=== PATIENT | female | born 1955 | race Caucasian/White ===

== ENCOUNTER 2017-12-11 10:29 | Emergency (ER) | payer OTHER ==
[~2017-12-11] VITALS: Ht 165.1 cm; Wt 176.9 kg
[~2017-12-11 10:29] MED LIST: ALLO100; ALLO100 PO; ASPI81EC PO; ATOR10; ATOR20 PO; Advil200 M1; BACITO; BUPR150T2; CHOL10002; CHOL10002 PO; CIPR500 PO; CLOM50A PO; CONEST.625; CONEST.625 PO; CRANBERRY PO; CRUTCH3 USE; CYCL10; FLUO20; FLUO20 PO; FOLI1; FOLI1 PO; FURO20 PO; FURO40; Flovent Disku250 MCG; HYDACE5 PO; HYDCHL25 PO; HYDPAM50 PO; IBUP400; LISI10; LISI20 PO; LISI5 PO; Loxapine10 MG; META800 PO; MOME220I IH; MULVITMINE; NAPR550 PO; OXYACE5T; OXYACE5T PO; OXYC1TAB11 PO; PHENA200 PO; PIOG15; PIOG45 PO; POTA10T PO; POTCHL10ER PO; PREMARIN; PROACE100 PO; PROM25; PROM25S PR; QUET25 PO; RANI150; RISP1; RISP3; RISP3 PO; RXOXYACE PO; RXPHEN200 PO; RXSULTRIDS PO; SULTRIDS PO; SUMA25; Silvadene20 GM; VITAMIN B PO; VITNEPH PO; Zantac150 MG PO
[2017-12-11 11:12] LABS: BASOPHILS ABSOLUTE AUTO 0.05 K/mm3 (0.00-0.23); BASOPHILS PERCENT AUTO 1 % (0-2); EOSINOPHILS PERCENT AUTO 1 % (0-6); Hematocrit 42.3 % (33.0-51.0); Hemoglobin 12.9 g/dL (11.5-16.0); IMMATURE GRAN ABSOLUTE AUTO 0.04 K/mm3 (0.00-0.10); IMMATURE GRAN PERCENT AUTO 0 % (0-1); LYMPHOCYTES ABSOLUTE AUTO 2.44 K/mm3 (0.84-5.20); LYMPHOCYTES PERCENT AUTO 26 % (21-46); MONOCYTES ABSOLUTE AUTO 0.88 K/mm3 (0.16-1.47); MONOCYTES PERCENT AUTO 9 % (4-13); Mean Corpuscular HGB 29.1 pg (26.0-34.0); Mean Corpuscular HGB Conc 30.5 g/dL (31.5-36.5); Mean Corpuscular Volume 95 fL (80-100); Mean Platelet Volume 11.1 fL (9.1-12.4); NEUTROPHILS ABSOLUTE AUTO 5.98 K/mm3 (1.96-9.15); NEUTROPHILS PERCENT AUTO 63 % (41-73); Platelet Count 191 K/mm3 (150-400); RDW Coefficient Variation 14.5 % (11.7-14.2); RDW Standard Deviation 50.1 fL (35.1-46.3); Red Blood Cell Count 4.44 M/mm3 (3.80-5.20); White Blood Cell Count 9.49 K/mm3 (4.00-11.30)
[2017-12-11 11:29] LABS: Alanine Aminotransfer (ALT/SGP 19 U/L (12-78); Albumin, Blood 3.3 g/dL (3.4-5.0); Albumin/Globulin Ratio 0.8 (0.8-1.8); Alk Phos 91 U/L (50-136); Anion Gap 9 mmol/L (6-16); Aspartate Aminotrans (AST/SGOT 26 U/L (12-37); Bilirubin, Total 2.6 mg/dL (0.1-1.0); Blood Urea Nitrogen 10 mg/dL (8-24); Bun/Creatinine Ratio 11.3 (12.0-20.0); CO2, Blood 28 mmol/L (21-32); Calcium, Blood 9.5 mg/dL (8.5-10.1); Chloride, Blood 103 mmol/L (98-108); Creatinine, Blood 0.89 mg/dL (0.40-1.00); Globulin, Blood 4.1 g/dL (2.2-4.0); Glomerular Filtration Rate >60 (60-); Glucose, Blood 112 mg/dL (70-99); Potassium, Blood 3.3 mmol/L (3.5-5.5); Sodium, Blood 140 mmol/L (136-145); Total Protein, Blood 7.4 g/dL (6.4-8.2)
[2017-12-11 12:11] LABS: Source, Urine Clean Catch
[2017-12-11 12:18] LABS: Bilirubin, Urine Neg (Neg); Blood, Urine Neg (Neg); Glucose Qualitative, Urine Neg (Neg); Ketones, Urine Neg (Neg); Leukocyte Esterase, Urine 1+ (Neg); Nitrite, Urine Pos (Neg); Protein, Urine Neg (Neg); Specific Gravity, Urine 1.015 (1.003-1.022); Urobilinogen, Urine NORM (Normal)
[2017-12-11 12:40] LABS: Appearance, Urine Hazy (Clear); Color, Urine Yellow (P-Yellow)
[2017-12-11 12:42] LABS: Bacteria Many /hpf; Red Blood Cells, Urine Not Seen /hpf (0-2); Squamous Epithelial Cells Mod /hpf (Few)
[2017-12-11] MEDS ORDERED: Cipro500 MG PO (13:55)
[2017-12-11] MEDS ORDERED: Norco 5-325 Ta1 EACH PO (13:57)
== END 2017-12-11 14:20 | disposition home or self-care (01) ==
LOC: ER 10:29
PROVIDERS: Emergency Medicine
DX: N39.0 Urinary tract infection, site not specified (principal); E11.9 Type 2 diabetes mellitus without complications; I10 Essential (primary) hypertension; F32.9 Major depressive disorder, single episode, unspecified; Z88.8 Allergy status to other drugs, medicaments and biological substances; Z88.0 Allergy status to penicillin; Z88.6 Allergy status to analgesic agent; Z88.2 Allergy status to sulfonamides; Z79.899 Other long term (current) drug therapy
CPT/HCPCS: 36415; 74176; 80053; 81001; 83690; 85025; 87077; 87086; 87186; 96374; 96375; 99284-25; J1885; J2405; J3010

== ENCOUNTER → 2018-10-22 | Outpatient (CLI) | payer OTHER ==
[~2018-10-22] MED LIST changes: +Cipro500 MG PO; +Norco 5-325 Ta1 EACH PO
[2018-10-22 17:49] LABS: BASOPHILS ABSOLUTE AUTO 0.02 K/mm3 (0.00-0.23); BASOPHILS PERCENT AUTO 0 % (0-2); EOSINOPHILS ABSOLUTE AUTO 0.05 K/mm3 (0.00-0.68); EOSINOPHILS PERCENT AUTO 1 % (0-6); Hematocrit 39.6 % (33.0-51.0); Hemoglobin 12.4 g/dL (11.5-16.0); IMMATURE GRAN ABSOLUTE AUTO 0.02 K/mm3 (0.00-0.10); IMMATURE GRAN PERCENT AUTO 0 % (0-1); LYMPHOCYTES ABSOLUTE AUTO 1.47 K/mm3 (0.84-5.20); LYMPHOCYTES PERCENT AUTO 18 % (21-46); MONOCYTES ABSOLUTE AUTO 0.81 K/mm3 (0.16-1.47); MONOCYTES PERCENT AUTO 10 % (4-13); Mean Corpuscular HGB 28.9 pg (26.0-34.0); Mean Corpuscular HGB Conc 31.3 g/dL (31.5-36.5); Mean Corpuscular Volume 92 fL (80-100); Mean Platelet Volume 11.7 fL (9.1-12.4); NEUTROPHILS ABSOLUTE AUTO 6.05 K/mm3 (1.96-9.15); NEUTROPHILS PERCENT AUTO 72 % (41-73); Platelet Count 186 K/mm3 (150-400); RDW Standard Deviation 54.6 fL (35.1-46.3); Red Blood Cell Count 4.29 M/mm3 (3.80-5.20); White Blood Cell Count 8.42 K/mm3 (4.00-11.30)
[2018-10-22 20:20] LABS: Alanine Aminotransfer (ALT/SGP 15 U/L (12-78); Albumin, Blood 3.3 g/dL (3.4-5.0); Albumin/Globulin Ratio 0.9 (0.8-1.8); Alk Phos 92 U/L (50-136); Anion Gap 4 mmol/L (6-16); Aspartate Aminotrans (AST/SGOT 20 U/L (12-37); Bilirubin, Total 1.8 mg/dL (0.1-1.0); Blood Urea Nitrogen 17 mg/dL (8-24); Bun/Creatinine Ratio 17.4 (12.0-20.0); CO2, Blood 27 mmol/L (21-32); Chloride, Blood 107 mmol/L (98-108); Cholesterol 131 mg/dL (50-200); Creatinine, Blood 0.98 mg/dL (0.40-1.00); Globulin, Blood 3.8 g/dL (2.2-4.0); Glomerular Filtration Rate >60 (60-); Glucose, Blood 88 mg/dL (70-99); HDL Cholesterol 64 mg/dL (>39); LDL/HDL RATIO 0.8; Low Density Lipoprotein Chol 49 mg/dL (0-110); Potassium, Blood 4.2 mmol/L (3.5-5.5); Sodium, Blood 138 mmol/L (136-145); Total Protein, Blood 7.1 g/dL (6.4-8.2); Triglycerides 92 mg/dL (30-160); Very Low Density Lipoprot Chol 18 mg/dL (6-32)
== END ==
LOC: LAB 14:00 → LAB SHORT 14:00
DX: E11.9 Type 2 diabetes mellitus without complications (principal); I10 Essential (primary) hypertension
CPT/HCPCS: 80053; 80061; 83036; 85025

== ENCOUNTER 2019-09-01 08:11 | Emergency (ER) | payer OTHER ==
[~2019-09-01] VITALS: Ht 165.1 cm; Wt 167.8 kg
[2019-09-01] MEDS ORDERED: BUPROPION XL150 M1 PO (08:40)
[2019-09-01] MEDS ORDERED: ACTOS30 MG PO (08:40)
== END 2019-09-01 12:46 | disposition home or self-care (01) ==
LOC: ER 08:11
DX: S70.01XA Contusion of right hip, initial encounter (principal); M25.562 Pain in left knee; M25.512 Pain in left shoulder; F32.9 Major depressive disorder, single episode, unspecified; E11.9 Type 2 diabetes mellitus without complications; I10 Essential (primary) hypertension; Z88.8 Allergy status to other drugs, medicaments and biological substances; Z88.0 Allergy status to penicillin; Z88.6 Allergy status to analgesic agent; Z88.2 Allergy status to sulfonamides; Z79.899 Other long term (current) drug therapy; W19.XXXA Unspecified fall, initial encounter
CPT/HCPCS: 73030; 73502; 73560-LT; 96374; 99283-25; A9270-GY; J3010

== ENCOUNTER 2019-09-01 17:19 | Inpatient (IN) | payer OTHER ==
[~2019-09-01] VITALS: Ht 165.1 cm; Wt 171.0 kg
[~2019-09-01 17:19] MED LIST changes: +ACTOS30 MG PO; +BUPROPION XL150 M1 PO; -CYCL10; +CYCL10 PO; -SUMA25; +SUMA25 PO
[2019-09-01 18:24] LABS: BASOPHILS ABSOLUTE AUTO 0.02 K/mm3 (0.00-0.23); BASOPHILS PERCENT AUTO 0 % (0-2); EOSINOPHILS PERCENT AUTO 0 % (0-6); Hematocrit 42.6 % (33.0-51.0); Hemoglobin 13.6 g/dL (11.5-16.0); IMMATURE GRAN ABSOLUTE AUTO 0.11 K/mm3 (0.00-0.10); IMMATURE GRAN PERCENT AUTO 1 % (0-1); LYMPHOCYTES ABSOLUTE AUTO 0.82 K/mm3 (0.84-5.20); LYMPHOCYTES PERCENT AUTO 4 % (21-46); MONOCYTES ABSOLUTE AUTO 1.61 K/mm3 (0.16-1.47); MONOCYTES PERCENT AUTO 9 % (4-13); Mean Corpuscular HGB 27.5 pg (26.0-34.0); Mean Corpuscular HGB Conc 31.9 g/dL (31.5-36.5); Mean Corpuscular Volume 86 fL (80-100); Mean Platelet Volume 10.7 fL (9.1-12.4); NEUTROPHILS ABSOLUTE AUTO 15.91 K/mm3 (1.96-9.15); NEUTROPHILS PERCENT AUTO 86 % (41-73); Platelet Count 240 K/mm3 (150-400); RDW Coefficient Variation 14.2 % (11.7-14.2); RDW Standard Deviation 44.6 fL (35.1-46.3); Red Blood Cell Count 4.94 M/mm3 (3.80-5.20); White Blood Cell Count 18.47 K/mm3 (4.00-11.30)
[2019-09-01 18:56] LABS: Alanine Aminotransfer (ALT/SGP 30 U/L (12-78); Albumin, Blood 3.4 g/dL (3.4-5.0); Albumin/Globulin Ratio 0.8 (0.8-1.8); Alk Phos 94 U/L (50-136); Anion Gap 8 mmol/L (6-16); Aspartate Aminotrans (AST/SGOT 110 U/L (12-37); Bilirubin, Total 2.3 mg/dL (0.1-1.0); Blood Urea Nitrogen 31 mg/dL (8-24); Bun/Creatinine Ratio 35.1 (12.0-20.0); CO2, Blood 24 mmol/L (21-32); Calcium, Blood 8.6 mg/dL (8.5-10.1); Chloride, Blood 106 mmol/L (98-108); Creatinine, Blood 0.88 mg/dL (0.40-1.00); Ethanol (Alcohol), Blood, Med <3 mg/dL; Glomerular Filtration Rate >60 (60-); Glucose, Blood 116 mg/dL (70-99); Potassium, Blood 3.9 mmol/L (3.5-5.5); Sodium, Blood 138 mmol/L (136-145); Total Protein, Blood 7.4 g/dL (6.4-8.2)
[2019-09-01 23:14] LABS: Source, Urine Voided
[2019-09-01 23:20] LABS: Bilirubin, Urine Neg (Neg); Blood, Urine 1+ (Neg); Glucose Qualitative, Urine Neg (Neg); Ketones, Urine 1+ (Neg); Leukocyte Esterase, Urine 1+ (Neg); Nitrite, Urine Pos (Neg); Protein, Urine 1+ (Neg); Specific Gravity, Urine 1.025 (1.003-1.022); Urobilinogen, Urine NORM (Normal)
[2019-09-01 23:28] LABS: Color, Urine Yellow (P-Yellow)
[2019-09-01 23:29] LABS: Appearance, Urine Hazy (Clear)
[2019-09-01 23:30] LABS: Bacteria Mod /hpf; Red Blood Cells, Urine 0-2 /hpf (0-2); Squamous Epithelial Cells Mod /hpf (Few); White Blood Cells, Urine 0-2 /hpf (0-5)
--- NOTE | 2019-09-02 01:37 | NUR ---
PATIENT IS A NEW ADMIT FROM THE ED. FOUR PERSON TRANSFER; MORBID OBESE, FROM [facility] TO BED. AXOX 4 AND BEDFAST. NS INFUSING AT 100 mL/HR ON ADMIT. DECONDITIONED AND ON ROOM AIR. PATIENT REPORTS BACK, RIGHT SHOULDER, AND RIGHT BUTTOCK PAIN. PATIENT ORIENTED TO ROOM AND CALL LIGHT SYSTEM. DENIES SOB AND N/V. CALL LIGHT IN REACH.
--- NOTE | 2019-09-02 01:43 | NUR ---
OXYCODONE 5 MG GIVEN FOR SHOULDER/BACK AND BUTTOCK PAIN. STATION CAPTAIN REPORTS SB 56. MEPILEX APPLIED TO SKIN TEARS. PATIENT TOOK HER MEDICATION WHOLE WITH WATER. REPORTS SHE WANTS TO GET SOME SLEEP. CALL LIGHT IN REACH.
--- NOTE | 2019-09-02 04:04 | NUR ---
SHIFT SUMMARY PATIENT HAD NO ACUTE CHANGES OBSERVED. AXO X3 AND BEDREST PER ORDER. SUPER OBESITY. PIV REMAINS INTACT. NS INFUSED FROM ED COMPLETE. FOREIGN STUDENT ADVISER REPORTS SB 56. VSS/AFEBRILE. REPORTED RIGHT SHOULDER/BUTTOCK, AND BACK PAIN. OXYCODONE 5 MG GIVEN PER EMAR. MEPILEX APPLIED TO SKIN TEARS. ABRASIONS T/O FROM REPORTED FALL INTO ROCKS OFF HER PORCH. WEEPING BLE EDEMA +3. FOUR PERSON ASSIST TO TURN AND USE BARIATRIC BEDPAN. CALL LIGHT IN REACH. BED IN LOWEST POSITION. WILL CONTINUE TO MONITOR UNTIL DAY SHIFT NURSE ASSUMES CARE.
[2019-09-02 04:57] LABS: Hematocrit 36.9 % (33.0-51.0); Hemoglobin 11.6 g/dL (11.5-16.0); Mean Corpuscular HGB 27.5 pg (26.0-34.0); Mean Corpuscular HGB Conc 31.4 g/dL (31.5-36.5); Mean Corpuscular Volume 87 fL (80-100); Mean Platelet Volume 10.8 fL (9.1-12.4); Platelet Count 195 K/mm3 (150-400); RDW Coefficient Variation 14.3 % (11.7-14.2); RDW Standard Deviation 45.4 fL (35.1-46.3); Red Blood Cell Count 4.22 M/mm3 (3.80-5.20); White Blood Cell Count 13.53 K/mm3 (4.00-11.30)
--- NOTE | 2019-09-02 07:16 | NUR ---
ASSUMED PATIENT CARE. PATIENT SLEEPING COMFORTABLY IN BED, NO SIGNS OF ACUTE DISTRESS. WCTM.
[2019-09-02 13:36] LABS: Free Thyroxine 1.39 ng/dL (0.70-1.60); Triiodothyronine, Free 1.71 pg/mL (2.18-3.98)
--- NOTE | 2019-09-02 15:30 | NUR ---
PATIENT HAD HYPOTENSIVE EPISODE WITH BP OF 88/46. PATIENT COMPLAINED OF SEVERE PAIN, PAIN MEDICATION GIVEN AND HEAD OF BED LOWERED. BP RETAKEN AND WAS 97/43. DR. HERNANDEZ NOTIFIED, ORDER GIVEN FOR 500 ML NS BOLUS.
[2019-09-02 16:34] LABS: BASOPHILS ABSOLUTE AUTO 0.01 K/mm3 (0.00-0.23); BASOPHILS PERCENT AUTO 0 % (0-2); EOSINOPHILS ABSOLUTE AUTO 0.01 K/mm3 (0.00-0.68); EOSINOPHILS PERCENT AUTO 0 % (0-6); Hematocrit 34.5 % (33.0-51.0); Hemoglobin 11.1 g/dL (11.5-16.0); IMMATURE GRAN ABSOLUTE AUTO 0.07 K/mm3 (0.00-0.10); IMMATURE GRAN PERCENT AUTO 1 % (0-1); LYMPHOCYTES ABSOLUTE AUTO 1.21 K/mm3 (0.84-5.20); LYMPHOCYTES PERCENT AUTO 10 % (21-46); MONOCYTES ABSOLUTE AUTO 1.12 K/mm3 (0.16-1.47); MONOCYTES PERCENT AUTO 10 % (4-13); Mean Corpuscular HGB 28.2 pg (26.0-34.0); Mean Corpuscular HGB Conc 32.2 g/dL (31.5-36.5); Mean Corpuscular Volume 88 fL (80-100); Mean Platelet Volume 10.9 fL (9.1-12.4); NEUTROPHILS ABSOLUTE AUTO 9.28 K/mm3 (1.96-9.15); NEUTROPHILS PERCENT AUTO 79 % (41-73); Platelet Count 172 K/mm3 (150-400); RDW Coefficient Variation 14.5 % (11.7-14.2); RDW Standard Deviation 46.4 fL (35.1-46.3); Red Blood Cell Count 3.94 M/mm3 (3.80-5.20)
--- NOTE | 2019-09-02 17:33 | NUR ---
PATIENT WAS ABLE TO WORK WITH PT/OT AND STAND AT SIDE OF BED TODAY. LABORATORY ANALYST CONSULTED ON THIS PATIENT, ASSISTING IN DISCHARGE PLANNING. PATIENT HAD HYPOTENSIVE EPISODE THIS SHIFT, 88/46. WITH REPOSITIONING AND PAIN MANAGEMENT, BP WAS BROUGHT UP TO 97/43. DR. HERNANDEZ NOTIFIED, 500 ML NS BOLUS ORDERED AND GIVEN. BP UP TO 93/54. DR. HERNANDEZ NOTIFIED OF CONTINUED LOW BP AND PATIENT'S COMPLAINT OF HEADACHE, DR. HERNANDEZ ASSESSED AND ORDERS GIVEN FOR MAINTENANCE FLUIDS. PLAN IS FOR PATIENT TO DISCHARGE TO SNF TOMORROW.
--- NOTE | 2019-09-02 19:06 | NUR ---
RELINQUISHED PATIENT CARE.
--- NOTE | 2019-09-02 19:44 | NUR ---
AFIB CONVERSION PER TELE DOUGH MOLDER HAND, PT CONVERTED FROM NSR TO AFIB AT 1922. RATE IS CURRENTLY IN THE 120S. HOSPITALIST DR SHAW NOTIFIED. AWAITING FURTHER ORDERS.
[2019-09-02 20:58] LABS: BASOPHILS ABSOLUTE AUTO 0.02 K/mm3 (0.00-0.23); BASOPHILS PERCENT AUTO 0 % (0-2); EOSINOPHILS ABSOLUTE AUTO 0.01 K/mm3 (0.00-0.68); EOSINOPHILS PERCENT AUTO 0 % (0-6); Hematocrit 37.2 % (33.0-51.0); IMMATURE GRAN ABSOLUTE AUTO 0.05 K/mm3 (0.00-0.10); IMMATURE GRAN PERCENT AUTO 0 % (0-1); LYMPHOCYTES PERCENT AUTO 7 % (21-46); MONOCYTES ABSOLUTE AUTO 0.41 K/mm3 (0.16-1.47); MONOCYTES PERCENT AUTO 3 % (4-13); Mean Corpuscular HGB Conc 32.3 g/dL (31.5-36.5); Mean Corpuscular Volume 87 fL (80-100); Mean Platelet Volume 10.9 fL (9.1-12.4); NEUTROPHILS PERCENT AUTO 90 % (41-73); NRBC ABSOLUTE 0.02 K/mm3 (0.00-0.02); NRBC Auto 0.2 /100 WBC (0.0-0.2); Platelet Count 152 K/mm3 (150-400); RDW Coefficient Variation 14.6 % (11.7-14.2); RDW Standard Deviation 45.8 fL (35.1-46.3); Red Blood Cell Count 4.29 M/mm3 (3.80-5.20); White Blood Cell Count 12.29 K/mm3 (4.00-11.30)
[2019-09-02 22:47] LABS: International Normalized Ratio 1.03
[2019-09-03 04:54] LABS: BASOPHILS ABSOLUTE AUTO 0.02 K/mm3 (0.00-0.23); BASOPHILS PERCENT AUTO 0 % (0-2); EOSINOPHILS PERCENT AUTO 0 % (0-6); Hematocrit 31.8 % (33.0-51.0); Hemoglobin 10.2 g/dL (11.5-16.0); IMMATURE GRAN ABSOLUTE AUTO 0.12 K/mm3 (0.00-0.10); IMMATURE GRAN PERCENT AUTO 1 % (0-1); LYMPHOCYTES ABSOLUTE AUTO 1.01 K/mm3 (0.84-5.20); LYMPHOCYTES PERCENT AUTO 5 % (21-46); MONOCYTES ABSOLUTE AUTO 0.64 K/mm3 (0.16-1.47); MONOCYTES PERCENT AUTO 3 % (4-13); Mean Corpuscular HGB 28.2 pg (26.0-34.0); Mean Corpuscular HGB Conc 32.1 g/dL (31.5-36.5); Mean Corpuscular Volume 88 fL (80-100); Mean Platelet Volume 10.6 fL (9.1-12.4); NEUTROPHILS ABSOLUTE AUTO 17.81 K/mm3 (1.96-9.15); NEUTROPHILS PERCENT AUTO 91 % (41-73); Platelet Count 153 K/mm3 (150-400); RDW Coefficient Variation 14.6 % (11.7-14.2); RDW Standard Deviation 47.1 fL (35.1-46.3); Red Blood Cell Count 3.62 M/mm3 (3.80-5.20)
--- NOTE | 2019-09-03 06:37 | NUR ---
SHIFT SUMMARY PT IS A 64 Y/O FEMALE, ADMITTED AFTER A FALL AT HOME. PT IS CURRENTLY ON BEDREST. SHE WAS MEDICATED ONCE FOR PAIN WITH PRN OXYCODONE. NO COMPLAINTS OF NAUSEA OR SOB. THE PT IS ON A CONTINUOUS TELE MONITOR. PER THE BULLET CHARGING MACHINE OPERATOR, PT CONVERTED FROM NSR TO AFIB IN THE 120S AT APPROXIMATELY 1920. AFTER INFORMING THE HOSPITALIST, DR SHAW, PT WAS GIVEN ONE DOSE OF IV DILTIAZEM AND TROPONINS CHECKED. PER THE BULLET CHARGING MACHINE OPERATOR, THE HEART RATE CAME DOWN SLIGHTLY TO THE 110S, AND CONVERTED BETWEEN NSR AND AFIB MULTIPLE TIMES. THE TROPONIN WAS CRITICALLY HIGH AT 1.75. AFTER DR SHAW WAS NOTIFIED, A HEPARIN DRIP WAS STARTED AT 13 U/KG/HR OR 26.5 ML/HR. ASSISTANT WOMEN'S TENNIS COACH CONSULT CALLED IN TO ANSWERING SERVICE. HEART RATE CONVERTED BACK TO NSR AT APPROXIMATELY 2329, RATE IN THE 60-70S. BP WAS SLIGHTLY LOW THIS AM AT 99/48. ALL OTHER VITALS STABLE. THIS AM, PT DID REPORT THAT SHE HAD BEEN HAVING CHEST PAIN "SINCE I CAME IN" THAT ALSO RADIATED UP THE LEFT JAW THAT WAS WORSE WITH DEEP INHALATION. NO OTHER ACUTE CHANGES IN PT CONDITION NOTED. WILL CONTINUE TO MONITOR AND TREAT PER EMAR UNTIL HAND OFF TO DAY SHIFT RN.
[2019-09-03 08:51] LABS: CHOL/HDL RATIO 1.8; Cholesterol 94 mg/dL (50-200); HDL Cholesterol 52 mg/dL (>39); LDL/HDL RATIO 0.5; Low Density Lipoprotein Chol 24 mg/dL (0-110); Triglycerides 90 mg/dL (30-160); Very Low Density Lipoprot Chol 18 mg/dL (6-32)
--- NOTE | 2019-09-03 16:48 | NUR ---
PATIENTS HR DROPPED INTO THE 40'S WHILE SLEEPING. WHEN WOKEN HR RETURNED TO THE 60'S. PATIENT ASYMPTOMATIC WITH BRADYCARDIA. DR HERNANDEZ NOTIFIED AND NO ORDERS RECEIVED.
--- NOTE | 2019-09-03 17:44 | NUR ---
PATIENT A/OX4, UP TODAY TO A CHAIR WITH FWW AND [address] SCAN TODAY TO R/O PE. VSS, ON RA. SR/SB ON TELE, PULSE DID DROP INTO THE 40'S THIS EVENING AND DR. HERNANDEZ WAS NOTIFIED. MULTIPLE SKIN ISSUES AND DIFFUSE RASH TO ABDOMEN AND BLE. CONTINUES TO REPORT CHEST PAIN WITH DEEP BREATHS. ALSO C/O OF CHRONIC KNEE AND BACK PAIN. MEDICATED WITH TYLENOL AND OXYCODONE. MOM GIVEN X1 THIS SHIFT DUE TO CONSTIPATION. PATIENT CONT/INCONTENT, ABLE TO GET UP TO BSC. ACHS BLOOD SUGARS, NO COVERAGE NEEDED THIS SHIFT. CALM AND COOPERATIVE WITH CARE, CALLS APPROPRIATELY FOR ASSISTANCE.
--- NOTE | 2019-09-03 18:00 | NUR ---
PATIENT CONVERTED BACK INTO A-FIB WITH HR 100-115. B/P STABLE. MESSAGE LEFT WITH DR. HERNANDEZ TO UPDATE ON RHYTHM CHANGE.
[2019-09-04 04:47] LABS: BASOPHILS ABSOLUTE AUTO 0.02 K/mm3 (0.00-0.23); BASOPHILS PERCENT AUTO 0 % (0-2); EOSINOPHILS ABSOLUTE AUTO 0.03 K/mm3 (0.00-0.68); EOSINOPHILS PERCENT AUTO 0 % (0-6); Hematocrit 30.4 % (33.0-51.0); Hemoglobin 9.6 g/dL (11.5-16.0); IMMATURE GRAN PERCENT AUTO 1 % (0-1); LYMPHOCYTES ABSOLUTE AUTO 1.06 K/mm3 (0.84-5.20); LYMPHOCYTES PERCENT AUTO 7 % (21-46); MONOCYTES ABSOLUTE AUTO 0.88 K/mm3 (0.16-1.47); MONOCYTES PERCENT AUTO 6 % (4-13); Mean Corpuscular HGB 28.2 pg (26.0-34.0); Mean Corpuscular HGB Conc 31.6 g/dL (31.5-36.5); Mean Corpuscular Volume 89 fL (80-100); Mean Platelet Volume 10.5 fL (9.1-12.4); NEUTROPHILS ABSOLUTE AUTO 12.23 K/mm3 (1.96-9.15); NEUTROPHILS PERCENT AUTO 86 % (41-73); Platelet Count 147 K/mm3 (150-400); RDW Standard Deviation 47.8 fL (35.1-46.3); Red Blood Cell Count 3.41 M/mm3 (3.80-5.20); White Blood Cell Count 14.32 K/mm3 (4.00-11.30)
[2019-09-04 05:04] LABS: Anion Gap 8 mmol/L (6-16); Blood Urea Nitrogen 15 mg/dL (8-24); Bun/Creatinine Ratio 21.5 (12.0-20.0); CO2, Blood 25 mmol/L (21-32); Calcium, Blood 7.8 mg/dL (8.5-10.1); Chloride, Blood 110 mmol/L (98-108); Glomerular Filtration Rate >60 (60-); Glucose, Blood 103 mg/dL (70-99); Potassium, Blood 3.6 mmol/L (3.5-5.5); Sodium, Blood 143 mmol/L (136-145)
--- NOTE | 2019-09-04 06:27 | NUR ---
SHIFT SUMMARY PT IS A 64 Y/O FEMALE, ADMITTED AFTER A FALL AT HOME. SHE IS A&0 X 4, MORBIDLY OBESE, AND A 2 PERSON LIFT ASSIST TO GET UP TO THE BEDSIDE COMMODE. NO COMPLAINTS OF ACUTE PAIN, NAUSEA OR SOB. TELE SHOWED CONVERSION FROM AFIB IN TO NSR @ 1919, FROM NSR TO AFIB IN THE 110S @ 2155, AND BACK TO NSR IN THE 70S AT 0101. ALL OTHER VITALS STABLE. NO ACUTE CHANGES IN PT CONDITION NOTED. WILL CONTINUE TO MONITOR AND TREAT PER EMAR UNTIL HAND OFF TO DAY SHIFT RN.
--- NOTE | 2019-09-04 11:57 | NUR ---
PATIENT STARTED OUT MY SHIFT WITH HEART CLARY/RHYTHM AT NORMAL SINUS RHYTHM. BY 0815 HER HR/RHYTHM CONVERTED TO AFIB. I WASN'T ABLT TO GET TO HER TO ADMINISTER HER MEDICATIONS UNTIL ABOUT 0830, I INFORMED THE NANOSYSTEMS ENGINEER MONITOR ABOUT THIS. I WAS GIVEN A CALL BACK AT 0855 TO NOTIFY ME THAT THE PATIENT CONVERTED BACK TO NSR.
--- NOTE | 2019-09-04 16:09 | NUR ---
THE PATIENT HAD A GOOD DAY TODAY. SHE CONTIUES TO HAVE CHRONIC BACK PAIN FOR WHICH SHE TAKES PO OXY WITH MODERATE RESULTS. SBP IS ELEVATED IN THE 150s, HOWEVER ALL OTHER VITALS REMAIN STABLE. THE PATIENT CALLS APPROPRIATELY FOR STAFF ASSIST. USES BEDSIDE COMMODE FOR TOILETING. TRANSFERS TO/FROM BED REQUIRE LEFT AND 2 PERSON ASSIST. PATIENT CONTINUES ON IV ABX WITHOUT S/SX OF ADVERSE REACTIONS NOTED OR REPORTED AT THIS TIME. WILL CONTINUE TO MONITOR AND PROVIDE CARE NEEDED.
--- NOTE | 2019-09-04 23:06 | NUR ---
2233 REPORT RECIEVED FROM SARA BOWENS. PT CONVERTED BACK TO A.FIB AVERAGING 108 BPM AT 2150. PT LAYING QUIETLY IN BED. ASYMPTOMATIC.
--- NOTE | 2019-09-05 03:29 | NUR ---
FILLER WIPER SUMMARY PT A/O X4. PT HAS BEEN GETTING UP WITH ASSISTANCE FROM STAFF AND USING LIFT TO EDGE OF BED. ONCE PT GETS UP TO THE EDGE OF BED, PT USES WALKER AND AMBULATES TO COMMODE. PT IS ABLE TO WALK TO COMMODE WITH FWW AND PUSH SELF UP FROM COMMODE WITHOUT HELP. MEDICATED FOR PAIN DURING THE NIGHT. VSS. COOPERATIVE AND PLEASANT. PT ON TELE. BEEN CONVERTING FROM A.FIB IN THE 100'S TO NORMAL SINUS RHYTMN TO SINUS KAYA.
[2019-09-05 05:04] LABS: BASOPHILS ABSOLUTE AUTO 0.02 K/mm3 (0.00-0.23); BASOPHILS PERCENT AUTO 0 % (0-2); EOSINOPHILS ABSOLUTE AUTO 0.05 K/mm3 (0.00-0.68); EOSINOPHILS PERCENT AUTO 0 % (0-6); Hematocrit 30.7 % (33.0-51.0); Hemoglobin 9.6 g/dL (11.5-16.0); IMMATURE GRAN ABSOLUTE AUTO 0.17 K/mm3 (0.00-0.10); IMMATURE GRAN PERCENT AUTO 2 % (0-1); LYMPHOCYTES PERCENT AUTO 11 % (21-46); MONOCYTES ABSOLUTE AUTO 0.81 K/mm3 (0.16-1.47); MONOCYTES PERCENT AUTO 7 % (4-13); Mean Corpuscular HGB 27.9 pg (26.0-34.0); Mean Corpuscular HGB Conc 31.3 g/dL (31.5-36.5); Mean Corpuscular Volume 89 fL (80-100); Mean Platelet Volume 10.9 fL (9.1-12.4); NEUTROPHILS PERCENT AUTO 80 % (41-73); Platelet Count 169 K/mm3 (150-400); RDW Standard Deviation 47.8 fL (35.1-46.3); Red Blood Cell Count 3.44 M/mm3 (3.80-5.20); White Blood Cell Count 11.45 K/mm3 (4.00-11.30)
[2019-09-05 05:25] LABS: Anion Gap 8 mmol/L (6-16); Blood Urea Nitrogen 16 mg/dL (8-24); Bun/Creatinine Ratio 23.2 (12.0-20.0); CO2, Blood 25 mmol/L (21-32); Calcium, Blood 8.2 mg/dL (8.5-10.1); Chloride, Blood 109 mmol/L (98-108); Creatinine, Blood 0.69 mg/dL (0.40-1.00); Glomerular Filtration Rate >60 (60-); Glucose, Blood 107 mg/dL (70-99); Potassium, Blood 3.7 mmol/L (3.5-5.5); Sodium, Blood 142 mmol/L (136-145)
--- NOTE | 2019-09-05 15:18 | NUR ---
PATIENT HAD AND UNEVENTFUL DAY WITH NO NEW CHANGES. HEART RATE/RHYTHM CONTINUES TO FLIP BACK AND FORTH BETWEEN AFIB AND NSR. CONTINUES ON IV ABX WITHOUT S/SX OF ADVERSE REACTIONS NOTED OR REPORTED. SHE DOES PRETTY WELL AMBULATING WITH FWW AND SBA; MUCH MORE DIFFICULTY WITH GETTING INTO/OUT OF BED. VITALS STABLE WITH EXCEPTION TO HER HEART RATE/RHYTHM. WILL CONTINUE TO MONITOR AND PROVIDE CARE NEEDED.
--- NOTE | 2019-09-05 18:45 | NUR ---
ASSUMED CARE RECEIVED REPORT FROM GOGO PEDROZA. ASSUMED CARE OF PT. ASLEEP AT THIS TIME, NO S/S ACUTE DISTRESS NOTED. RESPS EVEN AND UNLABORED. CALL LIGHT, POSSESSIONS IN REACH, SIDERAILS UP X3. WILL CONTINUE TO MONITOR.
--- NOTE | 2019-09-05 23:00 | NUR ---
2300 THIS RN NOTIFIED BY PCU TAKE OUT WAITRESS OF PT'S HR SUSTAINING IN THE LOW TO MID 40'S. ASSESSED PT, PT HAD BEEN ASLEEP, AROUSES EASILY. DENIES CP, PRESSURE, SOB, DIZZINESS. STATES, "I JUST FEEL COLD." WILL CONTINUE TO MONITOR AND REASSESS.
--- NOTE | 2019-09-06 04:26 | NUR ---
SHIFT SUMMARY PT RESTING COMFORTABLY AT THIS TIME, NO S/S ACUTE DISTRESS NOTED. WAS MONITORED EVERY 1-2 HOURS WITH NEEDS MET. PT SLEPT THROUGH DINNER, OFFERED SNACKS T/O NIGHT, PT DECLINED. SLEEPING T/O NIGHT PEACEFULLY. PT HR AND VS STABLE AT THIS TIME. TOLERATED TRANSFERS TO BSC WELL WITH ASSISTANCE OF 2, WALKS WELL WITH FWW. DENIES NEEDS AT THIS TIME, CALL LIGHT, POSSESSIONS IN REACH, BED IN LOWEST POSITION, WILL CONTINUE TO MONITOR UNTIL DAY RN ASSUMES CARE.
--- NOTE | 2019-09-06 18:40 | NUR ---
shift summary patient is pleasant, alert and oriented. no acute concerns at this time. she has been a 1pa today with fww. she had a bath and got to the bsc. no acute concerns at this time.
--- NOTE | 2019-09-07 05:57 | NUR ---
HR & RHYTHM AROUND 0420 PT REPORTED SOB, DIZZINESS & SWEATING. DENIED CHEST PAIN OR PRESSURE. BP 140/89, HR 117, RR 14, T 97.5 & SPO2 @93% ON RA. PCU DOPING SUPERVISOR REPORTED PT HAD CONVERTED TO AFIB AROUND 0416, TECH STATED PT HAD DONE THIS FOR THE PAST FEW NIGHTS & LASTED ROUGHLY 2HRS THEN WOULD CONVERT BACK TO NSR. CALLED DR HEALY @0445 & HE ORDERED 1X DOSE OF 5MG IV LOPRESSOR, AFTER GIVING MED DOPING SUPERVISOR REPORTED HR DECREASED TO AVG 110 STILL AFIB. CALL LIGHT IN REACH & I WCTM.
--- NOTE | 2019-09-07 06:03 | NUR ---
SHIFT SUMMARY AOX4. VSS. TELE IN PLACE, SB W/HR 57@ BEGINNING OF SHIFT & CURRENTLY RUNNING AFIB, READ PREVIOUS NOTE. PT REPORTS PAIN IN SHOULDERS & 5/10 R FLANK, ALSO STATES IT HURTS WHEN SHE URINATES, NOTIFIED DR HEALY & HE ORDERED A NEW UA TO BE COLLECTED, WILL PASS TO ONCOMING NURSE. MEDICATED 2X W/TYLENOL & 1X W/OXYCODONE PER ORDERS FOR PAIN. BLE HAVE 3+ PITTING EDEMA, REDNESS, WARM TO TOUCH & OPEN AREAS THAT ARE WEEPING SMALL AMOUNT SEROUS DRAINAGE. PT IS A 1-2 ASSIST W/TRANSFER TO BSC. CALL LIGHT IN REACH & I WCTM.
--- NOTE | 2019-09-07 06:16 | NUR ---
HR & RHYTHM NOTIFIED BY PCU SCHOOL TRAFFIC SUPERVISOR @0693 THAT PT CONVERTED BACK TO SB W/HR 50. AFTER BEING IN AFIB W/HR 110-120'S FOR 2HRS. NOTIFIED CHARGE NURSE. LAVONNE PT.
[2019-09-07 07:53] LABS: Source, Urine Clean Catch
[2019-09-07 08:11] LABS: Bilirubin, Urine Neg (Neg); Blood, Urine Neg (Neg); Glucose Qualitative, Urine Neg (Neg); Ketones, Urine Neg (Neg); Leukocyte Esterase, Urine 1+ (Neg); Nitrite, Urine Neg (Neg); Protein, Urine Neg (Neg); Urobilinogen, Urine NORM (Normal)
[2019-09-07 08:20] LABS: Appearance, Urine Clear (Clear); Color, Urine Yellow (P-Yellow)
[2019-09-07 08:23] LABS: Red Blood Cells, Urine 0-2 /hpf (0-2); Squamous Epithelial Cells Mod /hpf (Few)
[2019-09-07 08:27] LABS: Bacteria Few /hpf; Yeast/Fungi Urine Few /hpf
--- NOTE | 2019-09-07 14:16 | NUR ---
SHIFT SUMMARY PT IS A/O X 4 AND ONLY C/O HEADACHE PAIN X 1 TODAY, TYLENOL WAS GIVEN ORDERED AND EFFECTIVE. PT IS X 1 ASSIST WITH FWW IN HER ROOM. SISTER CALLED FOR AN UPDATE. PT IS WAITING ON PLACMENT AND ORDERED A COVID R/O TEST WG=HICH WAS COMPLETED AND WALKED TO THE LAB. RESULTS ARE STILL PENDING. PT IS ABLE TO MAKE HER NEEDS KNOWN AND CALLS FOR HELP WHEN NEEDED. SHE HAS HER CALL LIGHT IN REACH.
--- NOTE | 2019-09-07 14:42 | NUR ---
ASSUMED CARE OF PATIENT. PATIENT SLEEPING AT THIS TIME. REPORT FROM DIRK BOWENS
--- NOTE | 2019-09-08 02:34 | NUR ---
CALLED HOSPITALIST PT HAS BEEN SWITCHING FROM AFIB TO SINUS KAYA SINCE ADMIT. HOSPITALISTS ARE ALL AWARE OF THIS. THIS SHIFT SHE HAS BEEN DOING THIS WITH MORE FREQUENCY. I INFORMED THE HOSPITALIST OF THIS. I WILL CONTINUE TO MONITOR.
--- NOTE | 2019-09-08 04:32 | NUR ---
SHIFT SUMMARY ADMITTED FOR FALL. FULL CODE. AWAITING PLACEMENT. MORBIDLY OBESE, LYMPHADEMA ON BLE. TELEMETRY MONITORING: SWITCHES BETWEEN AFIB 113-120 BPM AND BRADYCARDIA @ 50'S BPM. THIS SHIFT SHE SWITCHED BETWEEN THE TWO RHYTHMS MORE FREQUENTLY - HOSPITALIST INFORMED. SHE IS ON RA, ADA DIET, 1 ASSIST W/FWW. SHE MAY NEED OUTPATIENT WOUND CLINIC AND OUTPATIENT STRESS TEST.
--- NOTE | 2019-09-08 15:29 | NUR ---
SHIFT SUMMARY PT IS A/O X4 WITH C/O PAIN X 1 AFTER WORKING WITH OT. TYLENOL IS EFFECTIVE FOR HER PAIN. SHE CONTINUES TO WAIT FOR HER INSURANCE TO APPROVE SNF DC AND CARE MANAGEMENT IS WORKING WITH HER. REPEAT CXR WAS COMPLETED THIS AFTERNOON. PT REMAINS ON TELE IN A-FIB IN THE LOW TEENS AND THE DR IS AWARE, SHE IS ASYMPTOMATIC. PT IS RESTING IN BED AND HAS BEEN NAPPING MOST OF THE DAY. SHE CALLS FOR HELP WHEN NEEDED AND HAS HER CALL LIGHT IN REACH.
--- NOTE | 2019-09-09 05:31 | NUR ---
SHIFT SUMMARY ASSUMED CARE OF PT AT 1900. PT IS A/OX4, DENIES N/T IN EXTREMITES. HEART SOUNDS REGULAR, TELE AT TE TIMES SHOWED SINUS RHYTHMN BUT MONITOR TECHS STATED THAT PT SKIPS FROM SINUS TO AFIB OFTEN AND THEIR HR RANGES FROM 40-120BPM DURING THE NIGHT, DENIES CP. LUNG SOUNDS CLEAR BUT DIMINISHED AT THE BASES, DENIES SOB. PT LAYED ON HER L SIDE ALL NIGHT AND C/O PAIN IN HER L SHOULDER AND HIP, MEDICATED PER EMAR. PT WAS A 1P ASSIST TO THE TOILET, TOLERATED WELL. PT LEG WOUNDS ARE OPEN TO AIR. NO ACUTE EVENTS DURING THE NIGHT. PT SLEPT T/O THE NIGHT. CALL LIGHT IN REACH, BED IN LOWEST POSTION, WILL CONTINUE TO MONITOR UNTIL DAYSHIFT NURSE ARRIVES.
--- NOTE | 2019-09-09 14:06 | NUR ---
ASSISTED PATIENT UP TO THE BATHROOM. SHE STATED THAT SHE FELT DIZZY UPON STANDING. I WAS INTERESTED TO SEE IF THE PATIENT HAD ORTHOSTATIC BLOOD PRESSURES AND CHECKED HER BP FROM SITTING TO STANDING. HER BP ACTUALLY ELEVATED UPON STANDING; BOTH READINGS WERE ELEVATED. ADMINISTERED IV HYDRALAZINE TO PATIENT AND WILL REASSESS.
--- NOTE | 2019-09-09 15:17 | NUR ---
PATIENT'S BP CAME DOWN WNL AT RECHECK. PATIENT REMAINS ASYMMPTOMATIC. SHE JUST FINISHED WORKING WITH THERAPY AND ASKED FOR ASSISTANCE BACK INTO BED. DECLINES THE NEED FOR PAIN MEDICATION FOR PAIN OR DISCOMFORT. TELE REMAINS IN PLACE AND CONTINUES TO CONVERT BACK AND FORTH BETWEEN AFIB AND NSR. PATIENT RESTING IN ROOM AT THIS TIME. WILL CONTINUE TO MONITOR AND PROVIDE CARE NEEDED.
--- NOTE | 2019-09-10 07:31 | NUR ---
FITNESS AND WELLNESS DIRECTOR SUMMARY PT A/O X4. UP TO BATHROOM WITH STANDBY ASSIST AND FWW. MEDICATED FOR SHOULDER PAIN ONCE WITH TYLENOL TONIGHT. DENIES CHEST PAIN, SOB. PT CALLS APPROPRIATELY. HR AND RHYTHMN HAS BEEN CONVERTING FROM A.FIB, SINUS KAYA TO NSR SHE HAS BEEN IN THE PREVIOUS SHIFTS. REPORT GIVEN TO AM NURSE.
[2019-09-10] MEDS ORDERED: ATOR10 PO (16:27)
[2019-09-10] MEDS ORDERED: FAMO40 PO (16:48)
[2019-09-10] MEDS ORDERED: DILT30 PO (16:49)
[2019-09-10] MEDS ORDERED: FURO20 PO (16:49)
[2019-09-10] MEDS ORDERED: OXYC5 PO (16:50)
[2019-09-10] MEDS ORDERED: METO50ER PO (16:50)
[2019-09-10] MEDS ORDERED: XARELTO20 MG PO (16:51)
[2019-09-10] MEDS ORDERED: Vitamin D2000 UNIT PO (16:51)
--- NOTE | 2019-09-10 18:10 | NUR ---
PATIENT DISCHARGED TO [facility] VIA W/C , LEFT AT 1758 IN THE CARE OF [facility] [address] IN THEATER ATTENDANT. HAS ALL BELONGINGS, WAS MEDICATED FOR PAIN PRIOR TO D/C.
== END 2019-09-10 17:53 | DRG 947 ==
LOC: ER 17:19 → MEDS 17:21
PROVIDERS: Emergency Medicine; Hospitalist; Internal Medicine; Internal Medicine Cardiovascular Disease; ADMIT Internal Medicine
DX: R53.81 Other malaise (principal); I50.31 Acute diastolic (congestive) heart failure; G82.20 Paraplegia, unspecified; Z68.44 Body mass index [BMI] 60.0-69.9, adult; N39.0 Urinary tract infection, site not specified; Y92.008 Other place in unspecified non-institutional (private) residence as the place of occurrence of the external cause; F32.9 Major depressive disorder, single episode, unspecified; E11.9 Type 2 diabetes mellitus without complications; M10.9 Gout, unspecified; Z90.09 Acquired absence of other part of head and neck; E66.01 Morbid (severe) obesity due to excess calories; E78.5 Hyperlipidemia, unspecified; Z88.8 Allergy status to other drugs, medicaments and biological substances; Z91.5 Personal history of self-harm; I48.0 Paroxysmal atrial fibrillation; E03.9 Hypothyroidism, unspecified; I87.8 Other specified disorders of veins; I89.0 Lymphedema, not elsewhere classified; K21.9 Gastro-esophageal reflux disease without esophagitis; I11.0 Hypertensive heart disease with heart failure; D64.9 Anemia, unspecified; R07.81 Pleurodynia; Y04.2XXA Assault by strike against or bumped into by another person, initial encounter
CPT/HCPCS: 36415; 70450; 71045; 71046; 71260; 72070; 72100; 72125; 73030; 73502; 73560-LT; 80048; 80053; 80061; 81001; 82947; 84439; 84443; 84481; 84484; 85025; 85027; 85610; 85730; 87077; 87086; 87186; 93005; 93010; 93306; 96361; 96374; 97110; 97112; 97116; 97162; 97166; 97168; 97530; 97535; 99283-25; 99285-25; A9270; A9270-GY; G0480; J0360; J0696; J1644; J1650; J2405; J3010; J7030; J7050; P9612; Q9967; U0002

== ENCOUNTER → 2019-09-16 | Outpatient (CLI) | payer OTHER ==
[~2019-09-16] MED LIST changes: +ATOR10 PO; +DILT30 PO; +FAMO40 PO; +METO50ER PO; +OXYC5 PO; +Vitamin D2000 UNIT PO; +XARELTO20 MG PO
[2019-09-16 12:24] LABS: Hematocrit 39.9 % (33.0-51.0); Hemoglobin 12.5 g/dL (11.5-16.0); Mean Corpuscular HGB 28.4 pg (26.0-34.0); Mean Corpuscular HGB Conc 31.3 g/dL (31.5-36.5); Mean Corpuscular Volume 91 fL (80-100); Mean Platelet Volume 11.4 fL (9.1-12.4); Platelet Count 178 K/mm3 (150-400); RDW Coefficient Variation 15.4 % (11.7-14.2); RDW Standard Deviation 50.2 fL (35.1-46.3); White Blood Cell Count 10.37 K/mm3 (4.00-11.30)
[2019-09-16 12:36] LABS: Anion Gap 7 mmol/L (6-16); Blood Urea Nitrogen 13 mg/dL (8-24); CO2, Blood 28 mmol/L (21-32); Calcium, Blood 9.2 mg/dL (8.5-10.1); Chloride, Blood 106 mmol/L (98-108); Creatinine, Blood 0.81 mg/dL (0.40-1.00); Glomerular Filtration Rate >60 (60-); Glucose, Blood 97 mg/dL (70-99); Sodium, Blood 141 mmol/L (136-145)
== END | disposition home or self-care (01) ==
LOC: LAB RH 12:09 → EDSTATUS 12:51
PROVIDERS: Family Medicine
DX: I50.31 Acute diastolic (congestive) heart failure (principal)
CPT/HCPCS: 80048; 83880; 85027

== ENCOUNTER → 2019-09-29 | Outpatient (CLI) | payer OTHER ==
[2019-09-29 11:08] LABS: BASOPHILS ABSOLUTE AUTO 0.02 K/mm3 (0.00-0.23); BASOPHILS PERCENT AUTO 0 % (0-2); EOSINOPHILS ABSOLUTE AUTO 0.06 K/mm3 (0.00-0.68); EOSINOPHILS PERCENT AUTO 1 % (0-6); Hematocrit 44.4 % (33.0-51.0); Hemoglobin 13.7 g/dL (11.5-16.0); IMMATURE GRAN ABSOLUTE AUTO 0.02 K/mm3 (0.00-0.10); IMMATURE GRAN PERCENT AUTO 0 % (0-1); LYMPHOCYTES ABSOLUTE AUTO 1.62 K/mm3 (0.84-5.20); LYMPHOCYTES PERCENT AUTO 21 % (21-46); MONOCYTES PERCENT AUTO 10 % (4-13); Mean Corpuscular HGB 27.6 pg (26.0-34.0); Mean Corpuscular HGB Conc 30.9 g/dL (31.5-36.5); Mean Corpuscular Volume 90 fL (80-100); Mean Platelet Volume 11.5 fL (9.1-12.4); NEUTROPHILS ABSOLUTE AUTO 5.14 K/mm3 (1.96-9.15); NEUTROPHILS PERCENT AUTO 67 % (41-73); Platelet Count 167 K/mm3 (150-400); RDW Coefficient Variation 15.4 % (11.7-14.2); RDW Standard Deviation 50.8 fL (35.1-46.3); Red Blood Cell Count 4.96 M/mm3 (3.80-5.20); White Blood Cell Count 7.66 K/mm3 (4.00-11.30)
[2019-09-29 11:34] LABS: Anion Gap 6 mmol/L (6-16); Blood Urea Nitrogen 12 mg/dL (8-24); Bun/Creatinine Ratio 15.4 (12.0-20.0); CO2, Blood 27 mmol/L (21-32); Calcium, Blood 8.3 mg/dL (8.5-10.1); Chloride, Blood 109 mmol/L (98-108); Creatinine, Blood 0.78 mg/dL (0.40-1.00); Glomerular Filtration Rate >60 (60-); Glucose, Blood 108 mg/dL (70-99); Sodium, Blood 142 mmol/L (136-145)
== END | disposition home or self-care (01) ==
LOC: EDSTATUS 10:32 → LAB RH 11:02
PROVIDERS: Family Medicine
DX: I50.31 Acute diastolic (congestive) heart failure (principal)
CPT/HCPCS: 80048; 83880; 85025

== ENCOUNTER → 2019-12-25 | Outpatient (CLI) | payer OTHER | END | disposition home or self-care (01) | LOC: LAB RH 10:28 → EDSTATUS 13:22 | DX: E03.9 Hypothyroidism, unspecified (principal) | CPT/HCPCS: 84443 ==

== ENCOUNTER → 2019-12-31 | Outpatient (CLI) | payer OTHER ==
[2019-12-31 16:04] LABS: Digoxin (Lanoxin) 1.09 ug/mL (0.80-2.00)
== END | disposition home or self-care (01) ==
LOC: LAB RH 12:00 → LAB SHORT 12:00
PROVIDERS: Family Medicine
DX: I48.0 Paroxysmal atrial fibrillation (principal)
CPT/HCPCS: 80162

== ENCOUNTER 2020-01-13 10:56 | Observation (INO) | payer OTHER ==
[~2020-01-13] VITALS: Ht 165.1 cm; Wt 141.4 kg
[~2020-01-13 10:56] MED LIST changes: -ALLO100 PO; -ATOR10 PO; -BUPROPION XL150 M1 PO; -CHOL10002; -CONEST.625 PO; -CYCL10 PO; -FAMO40 PO; -METO50ER PO; -OXYC5 PO; -SUMA25 PO; -Vitamin D2000 UNIT PO; -XARELTO20 MG PO
[2020-01-13 11:33] LABS: BASOPHILS ABSOLUTE AUTO 0.05 K/mm3 (0.00-0.23); BASOPHILS PERCENT AUTO 0 % (0-2); EOSINOPHILS ABSOLUTE AUTO 0.04 K/mm3 (0.00-0.68); EOSINOPHILS PERCENT AUTO 0 % (0-6); Hematocrit 48.6 % (33.0-51.0); Hemoglobin 15.6 g/dL (11.5-16.0); IMMATURE GRAN ABSOLUTE AUTO 0.07 K/mm3 (0.00-0.10); IMMATURE GRAN PERCENT AUTO 1 % (0-1); LYMPHOCYTES ABSOLUTE AUTO 2.48 K/mm3 (0.84-5.20); LYMPHOCYTES PERCENT AUTO 20 % (21-46); MONOCYTES ABSOLUTE AUTO 0.95 K/mm3 (0.16-1.47); MONOCYTES PERCENT AUTO 8 % (4-13); Mean Corpuscular HGB 29.7 pg (26.0-34.0); Mean Corpuscular HGB Conc 32.1 g/dL (31.5-36.5); Mean Corpuscular Volume 92 fL (80-100); Mean Platelet Volume 10.4 fL (9.1-12.4); NEUTROPHILS ABSOLUTE AUTO 8.64 K/mm3 (1.96-9.15); NEUTROPHILS PERCENT AUTO 71 % (41-73); Platelet Count 211 K/mm3 (150-400); RDW Coefficient Variation 14.8 % (11.7-14.2); RDW Standard Deviation 50.4 fL (35.1-46.3); Red Blood Cell Count 5.26 M/mm3 (3.80-5.20); White Blood Cell Count 12.23 K/mm3 (4.00-11.30)
[2020-01-13 11:44] LABS: Alanine Aminotransfer (ALT/SGP 21 U/L (12-78); Albumin, Blood 2.7 g/dL (3.4-5.0); Albumin/Globulin Ratio 0.6 (0.8-1.8); Alk Phos 100 U/L (50-136); Anion Gap 5 mmol/L (6-16); Aspartate Aminotrans (AST/SGOT 18 U/L (12-37); Bilirubin, Total 1.5 mg/dL (0.1-1.0); Blood Urea Nitrogen 9 mg/dL (8-24); Bun/Creatinine Ratio 9.7 (12.0-20.0); CO2, Blood 27 mmol/L (21-32); Calcium, Blood 9.1 mg/dL (8.5-10.1); Chloride, Blood 108 mmol/L (98-108); Creatinine, Blood 0.93 mg/dL (0.40-1.00); Globulin, Blood 4.4 g/dL (2.2-4.0); Glomerular Filtration Rate >60 (60-); Glucose, Blood 132 mg/dL (70-99); Potassium, Blood 3.4 mmol/L (3.5-5.5); Sodium, Blood 140 mmol/L (136-145); Total Protein, Blood 7.1 g/dL (6.4-8.2)
[2020-01-13 11:46] LABS: International Normalized Ratio 1.11; Prothrombin Time Results 11.8 Sec (9.7-11.5); Troponin I <0.015 ng/mL (0.000-0.040)
[2020-01-13 12:41] LABS: Digoxin (Lanoxin) 0.87 ug/mL (0.80-2.00)
[2020-01-13] MEDS ORDERED: BUPROPION XL150 M1 PO (14:40)
[2020-01-13] MEDS ORDERED: ALLO100 PO (14:40)
[2020-01-13] MEDS ORDERED: VITAMIN D325 MC3 PO (14:41)
[2020-01-13] MEDS ORDERED: LANOXIN125 MCG PO (14:41)
[2020-01-13] MEDS ORDERED: ATOR10 PO (14:42)
[2020-01-13] MEDS ORDERED: METO25ER PO (14:42)
[2020-01-13] MEDS ORDERED: CONEST.625 PO (14:43)
[2020-01-13] MEDS ORDERED: ALLEGRA ALLERG180 MG PO (14:43)
[2020-01-13] MEDS ORDERED: FAMO40 PO (14:44)
[2020-01-13] MEDS ORDERED: XARELTO20 MG PO (14:44)
[2020-01-13] MEDS ORDERED: Artificial Tear15 ML BOTHEYES (14:46)
[2020-01-13] MEDS ORDERED: ACET325 PO (14:47)
[2020-01-13] MEDS ORDERED: CYCLOBENZAPRINE5 MG PO (14:48)
[2020-01-13] MEDS ORDERED: SUMA25 PO (14:49)
[2020-01-13] MEDS ORDERED: OXYC5 PO (14:49)
[2020-01-13] MEDS ORDERED: Milk Of Ma400 MG/5 M PO (14:50)
[2020-01-13] MEDS ORDERED: MIRALAX17 GM PO (14:50)
[2020-01-13] MEDS ORDERED: fleet enema PR (14:51)
[2020-01-13] MEDS ORDERED: BISA10S PR (14:51)
--- NOTE | 2020-01-13 15:30 | NUR ---
Pt arrived to the room PCU 15 via stretcher and was able to stand and move herself to the bed independently. Alert, oriented, conversant, and without any complaints. Atrial fibrillation, rate 85 bpm per numerical control machine machinist tech Celeste Choudhary.
--- NOTE | 2020-01-13 15:47 | NUR ---
Dr. Gay here to see the patient. States pt is to be NPO after midnight for angiogram in the morning. Consent was signed by the patient with the physician.
[2020-01-13 21:20] LABS: Source, Urine Clean Catch
[2020-01-13 21:25] LABS: Appearance, Urine Clear (Clear); Bilirubin, Urine Neg (Neg); Blood, Urine Neg (Neg); Color, Urine Yellow (P-Yellow); Glucose Qualitative, Urine Neg (Neg); Ketones, Urine Neg (Neg); Leukocyte Esterase, Urine Neg (Neg); Nitrite, Urine Neg (Neg); Protein, Urine Neg (Neg); Urobilinogen, Urine NORM (Normal)
[2020-01-14 04:01] LABS: BASOPHILS ABSOLUTE AUTO 0.01 K/mm3 (0.00-0.23); BASOPHILS PERCENT AUTO 0 % (0-2); EOSINOPHILS PERCENT AUTO 0 % (0-6); Hematocrit 44.5 % (33.0-51.0); Hemoglobin 14.4 g/dL (11.5-16.0); IMMATURE GRAN ABSOLUTE AUTO 0.05 K/mm3 (0.00-0.10); IMMATURE GRAN PERCENT AUTO 0 % (0-1); LYMPHOCYTES ABSOLUTE AUTO 0.79 K/mm3 (0.84-5.20); LYMPHOCYTES PERCENT AUTO 7 % (21-46); MONOCYTES ABSOLUTE AUTO 0.12 K/mm3 (0.16-1.47); MONOCYTES PERCENT AUTO 1 % (4-13); Mean Corpuscular HGB 29.6 pg (26.0-34.0); Mean Corpuscular HGB Conc 32.4 g/dL (31.5-36.5); Mean Corpuscular Volume 92 fL (80-100); Mean Platelet Volume 10.5 fL (9.1-12.4); NEUTROPHILS ABSOLUTE AUTO 10.35 K/mm3 (1.96-9.15); NEUTROPHILS PERCENT AUTO 91 % (41-73); Platelet Count 193 K/mm3 (150-400); RDW Coefficient Variation 14.5 % (11.7-14.2); RDW Standard Deviation 48.8 fL (35.1-46.3); Red Blood Cell Count 4.86 M/mm3 (3.80-5.20); White Blood Cell Count 11.32 K/mm3 (4.00-11.30)
[2020-01-14 04:18] LABS: Anion Gap 3 mmol/L (6-16); Blood Urea Nitrogen 12 mg/dL (8-24); Bun/Creatinine Ratio 13.8 (12.0-20.0); CO2, Blood 27 mmol/L (21-32); Calcium, Blood 9.1 mg/dL (8.5-10.1); Chloride, Blood 108 mmol/L (98-108); Creatinine, Blood 0.87 mg/dL (0.40-1.00); Glomerular Filtration Rate >60 (60-); Glucose, Blood 180 mg/dL (70-99); Potassium, Blood 4.4 mmol/L (3.5-5.5); Sodium, Blood 138 mmol/L (136-145)
--- NOTE | 2020-01-14 08:03 | NUR ---
SHIFT SUMMARY PT A&O; DENIES CHEST PAIN; VSS; AFIB NOTED ON TELE; HR 60'S-70'S; O2 SATS >93 ON RA; CLEAR LUNG SOUNDS; NO DISTRESS NOTED THIS SHIFT; CALL LIGHT IN REACH; BED IN LOWEST POSITION; REPORT GIVEN TO DAY SHIFT RN.
--- NOTE | 2020-01-14 10:15 | NUR ---
UPDATE: Pt returned to room PCU 15 post angiogram. VSS. R wrist site with no bleeding, oozing or swelling. Cap refil at 3 sec on R hand. Pt was given education regarding activity restrictions with R wrist. Pt states that she is having 8/10 shoulder pain from her chronic shoulder issue. WIll medicate per orders. Will continue to monitor and treat.
--- NOTE | 2020-01-14 11:23 | NUR ---
The pt returned from the laborer tree tapping approx one hour ago, with right wrist radial arterial access site. Site was visualized, and since that time the site has remained without bleeding, bruising, swelling, or evidence of hematoma. TR band in place, as well as white immoblizer board. sp02 consistently greater than 95% measured on the index finger of the right hand. The pt is presently talking with Kayode lopez global chief creative officer. She ate a late breakfast, and at this time has no complaints. atrial fibrillation, rate controlled per telemetry monitoring and EKG done after return from the laborer tree tapping.
--- NOTE | 2020-01-14 12:19 | NUR ---
NO changes to the TR band right wrist arterial site.
--- NOTE | 2020-01-14 13:26 | NUR ---
Right wrist site recovery remains unremarkable. She was medicated with ODT zofran for c/o mild nausea. At this time, she is being seen by the Heart Failure educator and occupational therapist.
--- NOTE | 2020-01-14 13:45 | NUR ---
Spiritual care visit conducted. Patient talks at length about her medical issues, her frustrations about trying to qualify for Medicare, her family unit complication and her challenges with placement following DC. Patient talks about her sister Eboni and how she has lost everything (along with many of patient's belongings) in the [facility]. Patient shares about her struggles with depression, anxiety and past suicidal ideations. Patient mentions that she has a good therapist and her psych medications are regulated well (so she feels she is doing ok). Patient explains about her many bahai views, the bahai traditions she was raised in (dad was Buddhist, mom was Presbyterian), and mixes in her critique of many of the world religions. I listen empathically, normalize patient's experience, and provide prayer. Patient responds well and shows signs of an elevated mood. I will continue to remain available to patient and family.
[2020-01-14] MEDS ORDERED: METO50 PO (14:20)
[2020-01-14] MEDS ORDERED: DILT120ERA PO (14:21)
[2020-01-14] MEDS ORDERED: FURO20 PO (14:22)
--- NOTE | 2020-01-14 15:47 | NUR ---
TR band has now been fully deflated, and the right wrist site remains without bleeding, bruising, swelling, or evidence of hematoma. TR band is in place and will be removed in about an hour. White immoblizer board in place and pt was re-educated not to bend the wrist, not to use the arm or hand for the time being. She is sitting up in a wheel chair, her own, watching TV.
--- NOTE | 2020-01-14 17:47 | NUR ---
Pt taken for angiogram this morning, returned to room approx 1015. TR band recovery was uneventful, and band removed completely 1 hour post deflation at 1745. Pt was OOB to wheelchair after working with OT and PT, sat up in chair until 1800 when she was assisted back to bed. No chest pain, no dyspnea; only complaint of pain was from left shoulder which she states needs to have surgery for reconstruction. Minimal assistance for toileting and activity. Call from Annalee Sullivan this afternoon that pending insurance approval pt will be discharged tomorrow morning.
--- NOTE | 2020-01-15 06:18 | NUR ---
SHIFT SUMMARY PT A&O; STATES SHE IS VERY TIRED AFTER ANGIO; BP SOFT; DENIES CHEST PAIN; R RADIAL SITE W/ TEGADERM IN PLACE, C/D/I; AFIB NOTED ON TELE W/ HR 58-70; O2 SATS >93 ON RA; PT SLEPT SEVERAL HOURS IN BETWEEN INTERVENTIONS; CALL LIGHT IN REACH; BED IN LOWEST POSITION; WILL CONTINUE TO MONITOR CLOSELY UNTIL HAND OFF TO DAY SHIFT RN.
--- NOTE | 2020-01-15 11:23 | NUR ---
PATIENT DISCHARGED TO [facility] AT 11:2. TRANSFERRED BY [facility]. TELE DC'D. IV DC'D.
== END 2020-01-15 11:24 ==
LOC: ER 10:56 → PCU 10:57
PROVIDERS: Emergency Medicine; Nurse Practitioner Acute Care; ADMIT Internal Medicine
DX: I25.110 Atherosclerotic heart disease of native coronary artery with unstable angina pectoris (principal); Z20.828 Contact with and (suspected) exposure to other viral communicable diseases; I11.0 Hypertensive heart disease with heart failure; I50.42 Chronic combined systolic (congestive) and diastolic (congestive) heart failure; I48.91 Unspecified atrial fibrillation; E11.9 Type 2 diabetes mellitus without complications; Z88.0 Allergy status to penicillin; Z88.2 Allergy status to sulfonamides; Z88.6 Allergy status to analgesic agent; Z88.8 Allergy status to other drugs, medicaments and biological substances; Z91.041 Radiographic dye allergy status; E78.5 Hyperlipidemia, unspecified; E66.01 Morbid (severe) obesity due to excess calories; F32.9 Major depressive disorder, single episode, unspecified; G43.909 Migraine, unspecified, not intractable, without status migrainosus; Z98.890 Other specified postprocedural states; M10.9 Gout, unspecified; Z79.4 Long term (current) use of insulin; Z79.899 Other long term (current) drug therapy; I48.0 Paroxysmal atrial fibrillation; E03.9 Hypothyroidism, unspecified; Z68.43 Body mass index [BMI] 50.0-59.9, adult
CPT/HCPCS: 36415; 71045; 76937; 80048; 80053; 80162; 81003; 82947; 83735; 84484; 85025; 85610; 93005; 93010; 93306; 93458; 96361; 96374; 96375; 97110; 97162; 97166; 97535; 98960; 99152; 99153; 99285-25; A9270; A9270-GY; C1769; C1894; J1200; J1644; J2250; J2405; J3010; J3480; J7030; J7050; J7512; Q9967; U0003